=== PATIENT | female | born 1965 | race Hispanic/Latino ===

== ENCOUNTER 2021-01-17 23:05 | Emergency (ER) | payer OTHER, SELFPAY ==
[2021-01-17] MEDS ORDERED: HYDROXYZINE HCL 25 MG TABLET ONE (23:34)
== END 2021-01-18 01:41 | disposition home or self-care (01) ==
LOC: EDH 23:05
DX: S70.02XA Contusion of left hip, initial encounter (principal); F41.1 Generalized anxiety disorder; I10 Essential (primary) hypertension; J45.909 Unspecified asthma, uncomplicated; V49.49XA Driver injured in collision with other motor vehicles in traffic accident, initial encounter; Y93.89 Activity, other specified; Y92.89 Other specified places as the place of occurrence of the external cause; Y99.8 Other external cause status
CPT/HCPCS: 73502

== ENCOUNTER 2022-09-14 17:34 | Emergency (ER) | payer OTHER | END 2022-09-14 18:34 | disposition left against medical advice (07) | LOC: EDH 17:34 | DX: M25.552 Pain in left hip (principal); Z53.21 Procedure and treatment not carried out due to patient leaving prior to being seen by health care provider ==

== ENCOUNTER 2022-09-14 20:28 | Emergency (ER) | payer OTHER ==
[~2022-09-14] VITALS: Ht 157.5 cm; Wt 79.8 kg
[2022-09-15 01:50] VITALS: BP 126/82
== END 2022-09-15 01:53 | disposition home or self-care (01) ==
LOC: EDH 20:28
DX: G89.29 Other chronic pain (principal); M25.552 Pain in left hip; E11.9 Type 2 diabetes mellitus without complications; I10 Essential (primary) hypertension; J45.909 Unspecified asthma, uncomplicated; Z98.890 Other specified postprocedural states
CPT/HCPCS: 73501

== ENCOUNTER → 2023-03-10 | Outpatient (CLI) | payer MEDICARE | END | disposition home or self-care (01) | LOC: RAH 12:35 | PROVIDERS: ATTEND Internal Medicine | DX: I27.20 Pulmonary hypertension, unspecified (principal) | CPT/HCPCS: 93306 ==